=== PATIENT | male | born 1940 ===

== ENCOUNTER 2016-11-11 06:52 | Day surgery (SDC) | payer MEDICARE ==
[2016-11-04 14:23] VITALS: BMI 27.6
[2016-11-11] MEDS ORDERED: Propofol 10 mg/ml Inj (20 ML) ONE (08:39)
[2016-11-13 15:25] VITALS: BP 131/71; PULSE 84; RESP 18; TEMP 98.2; O2SAT 96
== END 2016-11-11 10:27 | disposition home or self-care (01) ==
LOC: ENDO 06:52
PROVIDERS: ATTEND Internal Medicine
DX: K57.30 Diverticulosis of large intestine without perforation or abscess without bleeding (principal); K59.00 Constipation, unspecified; D12.2 Benign neoplasm of ascending colon; D12.5 Benign neoplasm of sigmoid colon; D12.3 Benign neoplasm of transverse colon; K64.8 Other hemorrhoids; I10 Essential (primary) hypertension
CPT/HCPCS: 45380; 45390; 88305; J2704; J7040

== ENCOUNTER 2017-05-02 20:18 | Inpatient (IN) | payer MEDICARE ==
[2017-05-02] MEDS ORDERED: Magnesium Citrate Oral SOL (300 ml) PO ONE (20:59)
--- NOTE | 2017-05-02 22:02 | ED PDOC ---
Arrival/HPI - General Chief Complaint: GI Problem Time Seen by Provider: 05/02/17 20:46 Historian: Patient - History of Present Illness Narrative History of Present Illness (Text): 05/02/17 20:55 Juan Jose Husain is a 76 year old male, whose past medical history includes hypertension, gastritis, and hyperlipidemia, who presents to the Emergency department for evaluation of constipation. Patient states he has not been able to have a normal bowel movement in the past few days. Patient denies any fever, chills, chest pain, shortness of breath, appetite changes, nausea, vomiting, diarrhea, headache, dizziness, or any other complaints. Time/Duration: < week (few days) Symptom Onset: Gradual Symptom Course: Unchanged Activities at Onset: Light Context: Home Past Medical History - Provider Review Nursing Documentation Reviewed: Yes - Infectious Disease Hx of Infectious Diseases: None - Cardiac Hx Hypertension: Yes - Neurological Hx Paralysis: No - Hematological/Oncological Hx Blood Transfusions: No Hx Blood Transfusion Reaction: No - Genitourinary/Gynecological Hx Prostate Cancer: Yes - Psychiatric Hx Emotional Abuse: No Hx Physical Abuse: No Hx Substance Use: No - Anesthesia Hx Anesthesia Reactions: No Hx Malignant Hyperthermia: No - Suicidal Assessment Feels Threatened In Home Enviroment: No Family/Social History - Physician Review Nursing Documentation Reviewed: Yes Family/Social History: Unknown Family HX Smoking Status: Former Smoker Hx Alcohol Use: No Hx Substance Use: No Allergies/Home Meds Allergies/Adverse Reactions: Allergies No Known Allergies Allergy (Verified 11/04/16 14:23) Home Medications: Home Meds Medication Instructions Recorded Confirmed Aspirin [Adult Low Dose Aspirin EC] 81 mg PO DAILY 11/04/16 05/02/17 Metoprolol Tartrate 12.5 mg PO QAM 11/04/16 05/02/17 Simvastatin 40 mg PO QPM 11/04/16 05/02/17 Cholecalciferol [Vitamin D 1000 IU] 50,000 units PO SAT 05/02/17 05/02/17 Ranitidine HCl [Zantac] 150 mg PO DAILY 05/02/17 05/02/17 Review of Systems - Physician Review All systems were reviewed & negative as marked: Yes - Review of Systems Constitutional: Normal. absent: Fevers Eyes: Normal ENT: Normal Respiratory: Normal. absent: SOB, Cough Cardiovascular: Normal. absent: Chest Pain Gastrointestinal: Constipation. absent: Abdominal Pain, Nausea, Vomiting, Appetite Changes Genitourinary Male: Normal. absent: Dysuria, Frequency, Hematuria, Urinary Output Changes Musculoskeletal: Normal. absent: Back Pain, Neck Pain Skin: Normal. absent: Rash Neurological: Normal. absent: Headache, Dizziness Endocrine: Normal Hemo/Lymphatic: Normal Psychiatric: Normal Physical Exam Vital Signs Reviewed: Yes Vital Signs Temp Pulse Resp BP Pulse Ox 05/03/17 03:58 96 H 16 143/76 98 05/02/17 20:19 98.7 F 109 H 18 126/82 98 Temperature: Afebrile Blood Pressure: Normal Pulse: Regular Respiratory Rate: Normal Appearance: Positive for: Well-Appearing, Non-Toxic, Comfortable Pain Distress: None Mental Status: Positive for: Alert and Oriented X 3 - Systems Exam Head: Present: Atraumatic, Normocephalic Pupils: Present: PERRL Extroacular Muscles: Present: EOMI Conjunctiva: Present: Normal Mouth: Present: Moist Mucous Membranes Neck: Present: Normal Range of Motion Respiratory/Chest: Present: Clear to Auscultation, Good Air Exchange. No: Respiratory Distress, Accessory Muscle Use Cardiovascular: Present: Regular Rate and Rhythm, Normal S1, S2. No: Murmurs Abdomen: Present: Normal Bowel Sounds. No: Tenderness, Distention, Peritoneal Signs Back: Present: Normal Inspection. No: CVA Tenderness, Midline Tenderness, Paraspinal Tenderness Upper Extremity: Present: Normal Inspection. No: Cyanosis, Edema Lower Extremity: Present: Normal Inspection. No: Edema Neurological: Present: GCS=15, CN II-XII Intact, Speech Normal Skin: Present: Warm, Dry, Normal Color. No: Rashes Psychiatric: Present: Alert, Oriented x 3, Normal Insight, Normal Concentration Medical Decision Making ED Course and Treatment: 05/02/17 20:55 Impression: 76 year old male complaining of constipation for the past few days. Differential Diagnosis included but are not limited to: constipation vs. colitis Plan: -- Labs, lipase -- Enulose -- Magnesium Citrate -- Reassess and disposition Progress Notes: 05/03/17 03:02 Reviewed radiology, CT Abdomen and Pelvis shows: 1. Findings compatible with stercoral colitis. 2. LEFT renal pelvic calculus with tgha-vz-pezzitlm hydronephrosis. 3. RIGHT renal pelvic calculus with minimal hydronephrosis. 4. Incidental/non-acute findings are described above. 05/03/17 05:[address] Garber, who is aware and agrees with plan. Accepts pt in to her service. Pt will go to [facility] observation for colitis and constipation. Request Dr. Espinoza on consult. - Lab Interpretations Lab Results: 05/02/17 22:33 05/02/17 22:33 Lab Results 05/02/17 22:33: WBC 8.1, RBC 3.95, Hgb 12.0 L, Hct 35.4 L, MCV 89.6, MCH 30.4, MCHC 33.9, RDW 12.9, Plt Count 283, MPV 9.2 05/02/17 22:33: Sodium 139, Potassium 3.7, Chloride 100, Carbon Dioxide 28, Anion Gap 15, BUN 15, Creatinine 0.8, Est GFR ( Amer) > 60, Est GFR (Non- Af Amer) > 60, Random Glucose 87, Calcium 9.4, Total Bilirubin 1.8 H, AST 28, ALT 31, Alkaline Phosphatase 58, Total Protein 7.6, Albumin 4.1, Globulin 3.5, Albumin/Globulin Ratio 1.2, Lipase 133 I have reviewed the lab results: Yes - RAD Interpretation Narrative RAD Interpretations (Text): T Abdomen and Pelvis shows: Limitations: Motion artifact - mild. Lower thorax: Coronary artery calcifications. Small hiatal hernia. Mild mural thickening vs underdistention of distal esophagus. ABDOMEN: Liver: Unremarkable. Gallbladder and bile ducts: No calcified stones. No ductal dilation. Pancreas: Unremarkable. No ductal dilation. Spleen: No splenomegaly. Adrenals: No mass. Kidneys and ureters: Several probable renal cysts. Several renal calculi. Minimal pelvocaliectasis of RIGHT kidney. Fjpy-el-jakzldmd pelvocaliectasis of LEFT kidney. 1.2 x 1.4 x 0.5 cm calculus within RIGHT renal pelvis. 2.3 x 1.9 x 1.3 cm calculus within LEFT renal pelvis. Stomach and bowel: Moderate stool within sigmoid colon and rectum. Fluid/loose stool/air within remaining colon. Few scattered diverticula within colon. No associated inflammatory stranding. Wmgq-zt-gdfgjxtm mural thickening of sigmoid colon and rectum. Mild distention of cecum. Appendix: No findings to suggest acute appendicitis. PELVIS: Bladder: Unremarkable. No stones. Reproductive: Unremarkable as visualized. ABDOMEN and PELVIS: Intraperitoneal space: No significant fluid collection. No free air. Bones/joints: Mild degenerative changes of spine. Mild compression deformity superior endplate T11 vertebral body, chronic. Mild compression deformity superior endplate L1 vertebral body, acute or subacute. Soft tissues: Minimal gynecomastia. Tiny umbilical hernia containing fat. Vasculature: Moderate atherosclerotic disease. 3.0 cm infrarenal abdominal aortic aneurysm. No rupture. Lymph nodes: No pathologically enlarged lymph nodes. IMPRESSION: 1. Findings compatible with stercoral colitis. 2. LEFT renal pelvic calculus with mviy-yb-tqxfmcqt hydronephrosis. 3. RIGHT renal pelvic calculus with minimal hydronephrosis. 4. Incidental/non-acute findings are described above. Radiology Orders: 05/03/17 01:33 ABD & PELVIS W/O PO OR IV CONT [CT] Stat Hat Lacer: Radiologist - Medication Orders Current Medication Orders: Aspirin (Ecotrin) 81 mg PO DAILY [facility] Last Admin: 05/03/17 10:39 Dose: 81 mg Atorvastatin Calcium (Lipitor) 20 mg PO DIN FERNY Cholecalciferol (Vitamin D) 1,000 iu PO SAT FERNY Famotidine (Pepcid) 20 mg PO HS FERNY Ceftriaxone Sodium (Rocephin 1 Gram Ivpb) 1 gm in 100 mls @ 100 mls/hr IVPB DAILY [facility] PRN Reason: Protocol Last Admin: 05/03/17 10:39 Dose: 100 mls/hr Metronidazole (Flagyl) 500 mg in 100 mls @ 100 mls/hr IVPB Q8 FERNY PRN Reason: Protocol Metoprolol Tartrate (Lopressor) [facility] Last Admin: 05/03/17 10:39 Dose: 12.5 mg Discontinued Medications Ciprofloxacin (Cipro 400mg/200ml Dsw) 400 mg in 200 mls @ 133.333 mls/hr IV STAT STA PRN Reason: Protocol Stop: 05/03/17 04:31 Last Admin: 05/03/17 06:48 Dose: 133.333 mls/hr Metronidazole (Flagyl) 500 mg in 100 mls @ 100 mls/hr IVPB STAT STA PRN Reason: Protocol Stop: 05/03/17 04:02 Last Admin: 05/03/17 03:45 Dose: 100 mls/hr Sodium Chloride (Sodium Chloride 0.9%) 1,000 mls @ 100 mls/hr IV .Q10H STA Stop: 05/03/17 13:10 Last Admin: 05/03/17 03:46 Dose: 100 mls/hr Metronidazole (Flagyl) 1 gm in 200 mls @ 100 mls/hr IVPB Q8 FERNY PRN Reason: Protocol Last Admin: 05/03/17 14:13 Dose: 100 mls/hr Lactulose (Enulose) 20 gm PO ONCE STA Stop: 05/02/17 21:00 Last Admin: 05/02/17 22:37 Dose: 20 gm Magnesium Citrate (Citrate Of Mag) 300 ml PO ONCE ONE Stop: 05/02/17 21:00 Last Admin: 05/02/17 22:37 Dose: 300 ml - Scribe Statement The provider has reviewed the documentation as recorded by the Yaa Malhotra Provider Scribe Attestation: All medical record entries made by the Sarbjitibjulee were at my direction and personally dictated by me. I have reviewed the chart and agree that the record accurately reflects my personal performance of the history, physical exam, medical decision making, and the department course for this patient. I have also personally directed, reviewed, and agree with the discharge instructions and disposition. Disposition/Present on Arrival - Present on Arrival Any Indicators Present on Arrival: No History of DVT/PE: No History of Uncontrolled Diabetes: No Urinary Catheter: No History of Decub. Ulcer: No History Surgical Site Infection Following: None - Disposition Have Diagnosis and Disposition been Completed?: Yes Diagnosis: Colitis, Constipation Disposition: HOSPITALIZED Disposition Time: 03:11 Patient Plan: Observation Patient Problems: Current Active Problems Problem Status Onset Colitis Acute Constipation Acute Condition: STABLE
[2017-05-02 22:44] LABS: HEMATOCRIT 35.4 % (42.0-52.0); MEAN CELL VOLUME 89.6 fl (80.0-105.0); MEAN CORPUSCULAR HEMOGLOBIN 30.4 pg (25.0-35.0); MEAN CORPUSCULAR HGB CONC 33.9 g/dl (31.0-37.0); MEAN PLATELET VOLUME 9.2 fl (7.0-11.0); RED CELL DISTRIBUTION WIDTH 12.9 % (11.5-14.5); WHITE BLOOD COUNT 8.1 10^3/ul (4.5-11.0)
[2017-05-02 22:58] LABS: ALB/GLOB RATIO 1.2 (1.1-1.8); ALKALINE PHOSPHATASE 58 U/L (38-126); ALT/SGPT 31 U/L (7-56); AST/SGOT 28 U/L (17-59); BILIRUBIN,TOTAL 1.8 mg/dL (0.2-1.3); BLOOD UREA NITROGEN 15 mg/dL (7-21); CALCIUM 9.4 mg/dL (8.4-10.5); CARBON DIOXIDE 28 mmol/L (21-33); CHLORIDE 100 mmol/L (95-110); GFR AFRICAN-AMERICAN > 60; GLUCOSE,RANDOM 87 mg/dL (70-110); LIPASE 133 U/L (23-300); POTASSIUM 3.7 mmol/L (3.6-5.0); SODIUM 139 mmol/L (132-148); TOTAL PROTEIN 7.6 g/dL (5.8-8.3)
--- NOTE | 2017-05-03 02:45 | CT ---
EXAM: CT Abdomen and Pelvis Without Intravenous Contrast CLINICAL HISTORY: 76 years old, male; Pain; Abdominal pain; Additional info: Constipated TECHNIQUE: Axial computed tomography images of the abdomen and pelvis without intravenous contrast. All CT scans at this facility use one or more dose reduction techniques, viz.: automated exposure control; ma/kV adjustment per patient size (including targeted exams where dose is matched to indication; i.e. head); or iterative reconstruction technique. Coronal and sagittal reformatted images were created and reviewed. COMPARISON: No relevant prior studies available. FINDINGS: Limitations: Motion artifact - mild. Lower thorax: Coronary artery calcifications. Small hiatal hernia. Mild mural thickening vs underdistention of distal esophagus. ABDOMEN: Liver: Unremarkable. Gallbladder and bile ducts: No calcified stones. No ductal dilation. Pancreas: Unremarkable. No ductal dilation. Spleen: No splenomegaly. Adrenals: No mass. Kidneys and ureters: Several probable renal cysts. Several renal calculi. Minimal pelvocaliectasis of RIGHT kidney. Qlja-ua-sqgqtcvh pelvocaliectasis of LEFT kidney. 1.2 x 1.4 x 0.5 cm calculus within RIGHT renal pelvis. 2.3 x 1.9 x 1.3 cm calculus within LEFT renal pelvis. Stomach and bowel: Moderate stool within sigmoid colon and rectum. Fluid/loose stool/air within remaining colon. Few scattered diverticula within colon. No associated inflammatory stranding. Jvsj-dn-jchrsguq mural thickening of sigmoid colon and rectum. Mild distention of cecum. Appendix: No findings to suggest acute appendicitis. PELVIS: Bladder: Unremarkable. No stones. Reproductive: Unremarkable as visualized. ABDOMEN and PELVIS: Intraperitoneal space: No significant fluid collection. No free air. Bones/joints: Mild degenerative changes of spine. Mild compression deformity superior endplate T11 vertebral body, chronic. Mild compression deformity superior endplate L1 vertebral body, acute or subacute. Soft tissues: Minimal gynecomastia. Tiny umbilical hernia containing fat. Vasculature: Moderate atherosclerotic disease. 3.0 cm infrarenal abdominal aortic aneurysm. No rupture. Lymph nodes: No pathologically enlarged lymph nodes. IMPRESSION: 1. Findings compatible with stercoral colitis. 2. LEFT renal pelvic calculus with rvnh-sw-qrfnkicf hydronephrosis. 3. RIGHT renal pelvic calculus with minimal hydronephrosis. 4. Incidental/non-acute findings are described above.
[2017-05-03] MEDS ORDERED: Ciprofloxacin 400mg/200ml D5W 400 MG/200 ML BAG IV STA (03:02)
[2017-05-03] MEDS ORDERED: metroNIDAZOLE IV 500 mg/100 ml 500 MG/100 ML BAG IVPB STA (03:03)
[2017-05-03] MEDS ORDERED: Sodium Chloride 0.9% 1,000 ML IV STA (03:11)
[2017-05-03 05:16] VITALS: BMI 25.7
[2017-05-03] MEDS ORDERED: METOPROLOL TARTRATE 12.5 MG PO SCH (10:00)
[2017-05-03] MEDS: cefTRIAXone 1 gm 1 GM/100 ML BAG IVPB SCH (10:39)
[2017-05-03] MEDS ORDERED: METRONIDAZOLE IVPB SCH (14:00)
[2017-05-03] MEDS ORDERED: metroNIDAZOLE IV 500 mg/100 ml 100 ML IVPB SCH (14:00)
[2017-05-03] MEDS ORDERED: Non Formulary Medication (Simvastatin [Simvastatin] 40 MG) PO SCH (18:00)
[2017-05-03] MEDS: metroNIDAZOLE IV 500 mg/100 ml 500 MG/100 ML BAG IVPB SCH (22:23)
--- NOTE | 2017-05-04 04:08 | HP ---
CHIEF COMPLAINT: Bad constipation, abdominal pain. HISTORY OF PRESENT ILLNESS: Mr. Juan Jose Husain is 76 years old male with past medical history of hypertension and gastritis, hypercholesterolemia, came to the emergency department for evaluation of constipation. The patient said he has not been able to have a normal bowel movement. In the past few days, actually at home, he was taking MiraLax and Colace, but it was not working. The patient denies fevers, chills, chest pain, shortness of breath. No hematochezia. No nausea or vomiting, but complaining about abdominal heaviness. PAST MEDICAL HISTORY: Hypertension and history of prostate cancer. FAMILY HISTORY: Father and mother noncontributory. HABITS: Former smoker, nonsmoking. No drugs. No ethanol. ALLERGIES: THE PATIENT IS NOT ALLERGIC WITH ANY MEDICATIONS. HOME MEDICATIONS: Aspirin, metoprolol, simvastatin, vitamin D, Zantac. REVIEW OF SYSTEMS: The patient is seen and examined on the bedside. Looking little bit comfortable. No fever. No shortness of breath. No coughing. No chest pain. No nausea or vomiting. No appetite change. No dysuria. No frequency or hematuria. Urinary output is okay. No back pain. No neck pain. No rashes. No headache. No dizziness. PHYSICAL EXAMINATION: VITAL SIGNS: Temperature 98.7, pulse 99, blood pressure 133/88, respiratory rate 18. HEENT: Head is normocephalic and atraumatic. Eyes; PERRLA. Extraocular muscles intact. Conjunctivae clear. Nose is patent. Mucous membranes moist. NECK: Supple. No carotid bruit, JVD, or thyromegaly. CHEST: Bilaterally symmetrical. HEART: S1 and S2 positive. LUNGS: Clear to auscultation. ABDOMEN: Soft. Bowel sounds positive. No organomegaly. EXTREMITIES: No edema. No cyanosis. NEUROLOGIC: The patient is awake, alert, moving all 4 extremities. No focal deficit. LABORATORY DATA: White blood cells 8.1, hemoglobin 12.0, hematocrit 35.4, platelets of 283. Sodium 139, potassium 3.7, BUN 15, creatinine 0.8, glucose 87, total bilirubin 1.8. ASSESSMENT AND PLAN: Mr. Rodrigue Ingram is 76 years old male with anemia, abnormal liver function test, pain with bad constipation. Did CAT scan of abdomen and pelvis. Has colitis, left pelvic calculus with vuiz-gn-nhlrvngp hydronephrosis, right renal pelvic calculus with minimal hydronephrosis, moderate atherosclerotic disease, 3 cm infrarenal abdominal aortic aneurysm, mild compression deformities, end plate L1 vertebral body, acute or subacute umbilical hernia, mild compression deformities endplate of T11 vertebral body. The patient has history of hypertension, gastritis, hypercholesterolemia, history of prostate cancer. The patient is given ciprofloxacin, aspirin, and lactulose. With lactulose, the patient has bowel movement. Started on metronidazole and atorvastatin. GI and DVT prophylaxis. Repeat labs. We will follow. Leona Garber MD MTDD
[2017-05-04] MEDS: metroNIDAZOLE IV 500 mg/100 ml 500 MG/100 ML BAG IVPB SCH ×3 (05:49→22:34)
[2017-05-04 06:58] LABS: HEMATOCRIT 36.1 % (42.0-52.0); MEAN CELL VOLUME 89.6 fl (80.0-105.0); MEAN CORPUSCULAR HGB CONC 33.5 g/dl (31.0-37.0); MEAN PLATELET VOLUME 9.7 fl (7.0-11.0); RED CELL DISTRIBUTION WIDTH 13.2 % (11.5-14.5); WHITE BLOOD COUNT 6.7 10^3/ul (4.5-11.0)
[2017-05-04 07:32] LABS: BLOOD UREA NITROGEN 8 mg/dL (7-21); CALCIUM 9.2 mg/dL (8.4-10.5); CARBON DIOXIDE 29 mmol/L (21-33); CHLORIDE 103 mmol/L (98-107); CHOLESTEROL 128 mg/dL (130-200); GFR AFRICAN-AMERICAN > 60; GLUCOSE,RANDOM 79 mg/dL (70-110); POTASSIUM 3.7 mmol/L (3.6-5.0); SODIUM 142 mmol/L (132-148)
[2017-05-04 07:49] LABS: IRON 50 ug/dL (45-180)
[2017-05-04] MEDS: cefTRIAXone 1 gm 1 GM/100 ML BAG IVPB SCH (10:43)
[2017-05-04 13:33] LABS: FOLATE 5.7 ng/mL
--- NOTE | 2017-05-04 22:13 | PN ---
DATE: SUBJECTIVE: The patient is 76 years old male. The patient seen and examined on the bedside, looking comfortable. Abdominal pain is better. He had couple of bowel movements. No nausea or vomiting. No headache. No chest pain. No palpitations. PHYSICAL EXAMINATION VITAL SIGNS: Temperature 98.2, pulse 70, blood pressure 109/65, respiratory rate 20. HEENT: Head is normocephalic and atraumatic. Eyes: PERRLA. Extraocular muscles intact. Conjunctivae clear. Nose patent. Mucous membrane moist. NECK: Supple. No carotid bruits, No JVD or thyromegaly. CHEST: Bilaterally symmetrical. HEART: S1 and S2 positive. LUNGS: Clear to auscultation. ABDOMEN: Soft. Bowel sounds positive. No organomegaly. EXTREMITIES: No edema. No cyanosis. NEUROLOGICALLY: The patient is awake, alert. Moving all four extremities. No focal deficits. MEDICATIONS: Ecotrin, Flagyl, Lipitor, Lopressor, Pepcid, vitamin D. LABORATORY DATA: White blood cell is 6.7, hemoglobin 12.1, hematocrit 36.1, platelet 323, sodium 142, potassium 3.7, BUN 8, creatinine 0.7, iron saturation 16%, total protein bilirubin 1.8, cholesterol 128 and HDL is 63. ASSESSMENT AND PLAN: Mr. Rodrigue Ingram is a 76 years old man with anemia, iron deficiency, abnormal liver function test, have constipation, history of hypertension, history of prostate cancer, has colitis, left renal calculus with xhza-gl-lpcyryvw hydronephrosis, right renal pelvis calculus with minimal hydronephrosis. He was admitted for renal abdominal aortic aneurysm, compression deformity of the vertebra, umbilical hernia, history of gastritis and hypercholesterolemia. With lactulose constipation has resolved now we will discontinue the lactulose. The patient is on metronidazole and ciprofloxacin. Urology and GI consults called, waiting for GI and urology input. Repeat labs, out of bed, and physical therapy. We will followup. Leona Garber MD [facility]
[2017-05-05] MEDS: metroNIDAZOLE IV 500 mg/100 ml 500 MG/100 ML BAG IVPB SCH ×3 (05:43→21:51)
--- NOTE | 2017-05-05 07:57 | CP.PCM.CON ---
<Ronal Syed - Last Filed: 05/05/17 11:15> History of Present Illness - History of Present Illness History of Present Illness: GI Consult Note for Dr. Brothers 76 y/o M with PMH of HTN, HLD, and Prostate cancer presenting to the hospital on 05/03/17 for abdominal pain. Pt is a poor historian, much of medical history obtained from prior medical records. Patient stated that he did not have a bowel movement recently, for at least 3 days. Patient states he normally has a bowel movement every few days with the help of milk of magnesia. Pt states that recently, milk of magnesia has not been working for him. He has not tried anything else for his constipation. Abdomen/pelvis CT at time of admission did show stercoral colitis and left and right renal caliculi with hydronephrosis. Pt had a colonoscopy on 11/11/16 which showed multiple polyps within the ascending, transverse, and sigmoid colon, all found to be tubular adenomas. Last night, patient had a larger bowel movement and since that time feels much better. He no longer complains of abdominal pain. PMH: HTN, HLD, Prostate cancer Endo Hx: Colonoscopy as above Social Hx: Former smoker, 1 ppd for many years. No illicit drug use or alcohol use Allergies: None Medications: Reviewed, as per MAR Review of Systems - Review of Systems Review of Systems: 12 point ROS as per HPI, otherwise negative Past Patient History - Infectious Disease Hx of Infectious Diseases: None - Past Social History Smoking Status: Former Smoker - CARDIAC Hx Hypertension: Yes - NEUROLOGICAL Hx Paralysis: No - HEMATOLOGICAL/ONCOLOGICAL Hx Blood Transfusions: No Hx Blood Transfusion Reaction: No - MUSCULOSKELETAL/RHEUMATOLOGICAL Hx Falls: No - GENITOURINARY/GYNECOLOGICAL Hx Prostate Cancer: Yes - PSYCHIATRIC Hx Emotional Abuse: No Hx Physical Abuse: No Hx Substance Use: No - SURGICAL HISTORY Hx Surgeries: Yes - ANESTHESIA Hx Anesthesia Reactions: No Hx Malignant Hyperthermia: No Meds Allergies/Adverse Reactions: Allergies Allergy/AdvReac Type Severity Reaction Status Date / Time No Known Allergies Allergy Verified 11/04/16 14:23 - Medications Medications: Current Medications Aspirin (Ecotrin) 81 mg PO DAILY [facility] Last Admin: 05/04/17 10:42 Dose: 81 mg Atorvastatin Calcium (Lipitor) 20 mg PO DIN [facility] Last Admin: 05/04/17 17:43 Dose: 20 mg Cholecalciferol (Vitamin D) 1,000 iu PO SAT [facility] Famotidine (Pepcid) 20 mg PO HS [facility] Last Admin: 05/04/17 22:33 Dose: 20 mg Ceftriaxone Sodium (Rocephin 1 Gram Ivpb) 1 gm in 100 mls @ 100 mls/hr IVPB DAILY [facility] PRN Reason: Protocol Last Admin: 05/04/17 10:43 Dose: 100 mls/hr Metronidazole (Flagyl) 500 mg in 100 mls @ 100 mls/hr IVPB Q8 [facility] PRN Reason: Protocol Last Admin: 05/05/17 05:43 Dose: 100 mls/hr Metoprolol Tartrate (Lopressor) 12.5 mg PO QAM [facility] Last Admin: 05/04/17 10:42 Dose: 12.5 mg Physical Exam - Constitutional Appears: Well - Head Exam Head Exam: ATRAUMATIC, NORMAL INSPECTION, NORMOCEPHALIC - ENT Exam ENT Exam: Mucous Membranes Moist, Normal Exam - Respiratory Exam Respiratory Exam: Clear to Auscultation Bilateral, NORMAL BREATHING PATTERN. absent: Rales, Rhonchi, Wheezes - Cardiovascular Exam Cardiovascular Exam: RRR, +S1, +S2 - GI/Abdominal Exam GI & Abdominal Exam: Normal Bowel Sounds, Soft. absent: Tenderness - Extremities Exam Extremities exam: Negative for: calf tenderness, pedal edema - Back Exam Back exam: CVA tenderness (R). absent: CVA tenderness (L) - Neurological Exam Neurological exam: Alert, CN II-XII Intact, Oriented x3 - Psychiatric Exam Psychiatric exam: Normal Affect, Normal Mood - Skin Skin Exam: Intact, Normal Color, Warm Results - Vital Signs Recent Vital Signs: Last Vital Signs Temp 98.2 F 05/04/17 17:07 Pulse 70 05/04/17 17:07 Resp 20 05/04/17 17:07 BP 109/65 05/04/17 17:07 Pulse Ox 98 05/04/17 17:07 - Labs Result Diagrams: 05/04/17 06:00 05/04/17 06:00 Labs: Laboratory Results - last 24 hr 05/04/17 05/04/17 05/04/17 06:00 06:00 06:00 Iron 50 TIBC 318 % Saturation 16 L Vitamin B12 311 Folate 5.7 TSH 3rd Generation 1.16 Assessment & Plan - Assessment and Plan (Free Text) Plan: 76 y/o M with PMH of HTN, HLD, and Prostate cancer presents with abdominal pain secondary to constipation. Pt currently asymptomatic after large bowel movement last night. Pt will be placed on bowel regimen to alleviate constipation. In addition, patient will undergo cystoscopy by urology. Will sign off at this time , please reconsult as needed. Plan: Miralax daily, titrate to 1-2 bowel movements Colace daily Cystoscopy per Urology Continue medical management as per primary care team Yahaira PGY-2 <Mack Brothers Y - Last Filed: 05/05/17 11:45> Meds - Medications Medications: Current Medications Aspirin (Ecotrin) 81 mg PO DAILY [facility] Last Admin: 05/05/17 10:29 Dose: 81 mg Atorvastatin Calcium (Lipitor) 20 mg PO DIN [facility] Last Admin: 05/04/17 17:43 Dose: 20 mg Cholecalciferol (Vitamin D) 1,000 iu PO SAT [facility] Docusate Sodium (Colace) 100 mg PO DAILY [facility] Last Admin: 05/05/17 10:19 Dose: Not Given Famotidine (Pepcid) 20 mg PO HS [facility] Last Admin: 05/04/17 22:33 Dose: 20 mg Ceftriaxone Sodium (Rocephin 1 Gram Ivpb) 1 gm in 100 mls @ 100 mls/hr IVPB DAILY [facility] PRN Reason: Protocol Last Admin: 05/05/17 10:23 Dose: 100 mls/hr Metronidazole (Flagyl) 500 mg in 100 mls @ 100 mls/hr IVPB Q8 [facility] PRN Reason: Protocol Last Admin: 05/05/17 05:43 Dose: 100 mls/hr Metoprolol Tartrate (Lopressor) 12.5 mg PO QAM [facility] Last Admin: 05/05/17 10:23 Dose: 12.5 mg Polyethylene Glycol (Miralax) 17 gm PO DAILY [facility] Last Admin: 05/05/17 10:24 Dose: Not Given Results - Vital Signs Recent Vital Signs: Last Vital Signs Temp 98.2 F 05/05/17 08:53 Pulse 93 H 05/05/17 10:23 Resp 20 05/05/17 08:53 BP 156/93 H 05/05/17 10:23 Pulse Ox 97 05/05/17 08:53 - Labs Result Diagrams: 05/04/17 06:00 05/04/17 06:00 Attending/Attestation - Attestation I have personally seen and examined this patient.: Yes I have fully participated in the care of the patient.: Yes I have reviewed all pertinent clinical information: Yes Notes (Text): 05/05/17 11:38 I have seen and examined patient with GI fellow and lpn or medical assistant. Agree with above documentation with the following additions. In brief, this is a 76 year old male with history of HTN, prostate cancer, chronic constipation, who presents with complaint of abdominal pain. He describes a 7/10 intensity pain mainly located in RUQ, radiating to R flank that has been present for the past 2 days. He denies associated nausea, vomiting, fever/chills, weight loss, or rectal bleeding. He admits to chronic constipation and typically has a bowel movement every 3-4 days, recently with passage of hard stool and straining during defecation. He had a large bowel movement last night and since then his abdominal pain has significant improved, though the flank pain persists. He had a colonoscopy in October 2016 which showed diverticulosis, multiple adenomatous polyps. Additional physical examination: Abdomen: no palpable hepato/splenomegaly HTN Prostate cancer Abdominal pain, chronic constipation Nephrolithiasis, hydronephrosis CT imaging reviewed by me showing changes suggestive of stercoral colitis - Diet as tolerated - Had a long discussion with patient regarding importance of increased PO water and fiber intake - Maintain aggressive bowel regimen to prevent ongoing constipation - Continue with antibiotic therapy as per medical team - Patient to undergo possible cystoscopy today, follow up urology recommendations - Patient will need repeat colonoscopy in October [address] Quispe for surveillance. No current planned GI intervention, will sign off case, please reconsult as necessary. Case discussed with Dr. Garber.
--- NOTE | 2017-05-05 08:23 | PCM.URO ---
Urology Progress Note - Subjective Abdominal Pain: Yes - Objective Lab Results Last 24 Hours: Laboratory Results - last 24 hr 05/04/17 05/04/17 06:00 06:00 Iron 50 TIBC 318 % Saturation 16 L Vitamin B12 311 Folate 5.7 Intake & Output: Intake & Output 05/04/17 05/05/17 05/05/17 18:59 06:59 18:59 Intake Total 1540 540 Output Total 14 0 Balance 1526 540 Intake: Oral 1540 540 Output: Urine 6 Urine, Voided 6 Stool 8 0 Other: # Voids Urine, Voided 4 2 # Bowel Movements 1 3 Vital Signs: Vital Signs - 24 hr 05/04/17 05/04/17 10:42 17:07 Temperature 98.2 F Pulse Rate 70 Respiratory 20 Rate Blood Pressure 137/77 109/65 O2 Sat by Pulse 98 Oximetry - Plan Additional Information: gu plans : further plans to follow , he needs cystoscoy we can perform as in pt or out pt
[2017-05-05] MEDS: cefTRIAXone 1 gm 1 GM/100 ML BAG IVPB SCH (10:23)
[2017-05-05] MEDS: POLYETHYLENE GLYCOL 3350 17 GM/Dose PACKET PO SCH (10:24)
--- NOTE | 2017-05-05 15:33 | RAD ---
HISTORY: pre-cystoscopy COMPARISON: No prior. FINDINGS: LUNGS: The lungs are well inflated. There are chronic changes in both lungs. PLEURA: No significant pleural effusion identified, no pneumothorax apparent. CARDIOVASCULAR: Normal. OSSEOUS STRUCTURES: No significant abnormalities. VISUALIZED UPPER ABDOMEN: Normal. OTHER FINDINGS: None. IMPRESSION: No acute findings.
[2017-05-05] MEDS ORDERED: Lactated Ringer's 1,000 ML IV SCH (16:10)
[2017-05-05] MEDS ORDERED: Morphine 2 mg/ml ISec IVP PRN (16:10)
[2017-05-05] MEDS ORDERED: Propofol 10 mg/ml Inj (20 ML) ONE (16:35)
[2017-05-05] MEDS ORDERED: Midazolam 2 MG/2 ML VIAL ONE (16:36)
[2017-05-05] MEDS ORDERED: Iohexol 240 (50 ml) ONE (18:01)
--- NOTE | 2017-05-05 20:48 | CARD ---
APPROVED REPORT EKG Measurement Heart [id number] <Conclusion> Normal sinus rhythm Right bundle branch block Abnormal ECG
[2017-05-06 09:14] VITALS: BP 140/70; PULSE 92; RESP 20; TEMP 98.8; O2SAT 97
[2017-05-06] MEDS: POLYETHYLENE GLYCOL 3350 17 GM/Dose PACKET PO SCH (09:45)
[2017-05-06] MEDS: cefTRIAXone 1 gm 1 GM/100 ML BAG IVPB SCH (10:00)
--- NOTE | 2017-05-06 12:45 | RAD ---
PROCEDURE: Intraoperative Fluoroscopy. HISTORY: STENT INSERTION / RETROGRADES BILATERAL FINDINGS: Fluoroscopic assistance was provided. 113.8 seconds of fluoroscopy time utilized during this procedure. Radiation dose = 17.59 mGy.
--- NOTE | 2017-05-08 08:17 | DS ---
CHIEF COMPLAINT: Constipation and abdominal pain. HISTORY OF PRESENT ILLNESS: Mr. Juan Jose Husain is 76 years old male with a past medical history of hypertension, gastritis, and hypercholesterolemia, came to the emergency room for evaluation of constipation and the patient said that he has not been able to have a normal bowel movement in past few days. Actually at home, he was taking MiraLax, Colace, but was not working, then the patient came in the hospital, CAT scan of abdomen and pelvis done. Seen by urologist and embosser operator and Dr. Mack Brothers. Went for cystoscopy on for hydronephrosis and nephrolithiasis, cleared by GI and urology, sent home with follow up, primary care physician, urologist and embosser operator. PAST MEDICAL HISTORY: Hypertension and history of prostate cancer. FAMILY HISTORY: Father and mother noncontributory. HABITS: Former smoker. No drugs, and no ethanol. ALLERGIES: THE PATIENT IS NOT ALLERGIC WITH ANY MEDICATION. HOME MEDICATIONS: Aspirin, metoprolol, simvastatin, vitamin D, and Zantac. REVIEW OF SYSTEMS: The patient was seen and examined on the bedside, looking comfortable. No nausea, vomiting, or diarrhea. No hematuria or hematochezia. No swelling of the legs. No chest pain. No palpitations. No headache or dizziness. PHYSICAL EXAMINATION: VITAL SIGNS: Temperature 98.8, pulse 92, blood pressure 140/70 and respiratory rate 20. HEENT: Head is normocephalic and atraumatic. Eyes, PERRLA. Extraocular muscle intact. Conjunctivae clear. Nose is patent. Mucous membrane moist. NECK: Supple. No carotid bruits. No JVD or thyromegaly. CHEST: Bilaterally symmetrical. HEART: S1 and S2 positive. LUNGS: Clear to auscultation. ABDOMEN: Soft. Bowel sounds positive. No organomegaly. EXTREMITIES: No edema and no cyanosis. NEUROLOGIC: The patient is awake and alert. Moving all four extremities. No focal deficits. LABORATORY DATA: White blood cell is 6.7, hemoglobin 12.1, hematocrit 36.1 and platelets 323. Sodium 142, potassium 3.7, BUN 8, creatinine 0.7, glucose 79. Hemoglobin A1c is 6.1. Saturation of iron 16, bilirubin 1.8, and cholesterol 128. ASSESSMENT AND PLAN: Mr. Juan Jose Husain is a 76 years old male with anemia, already seen by embosser operator, iron deficiency, abnormal liver function test and bilirubin is 1.8, came with bad constipation, history of hypertension, hypercholesterolemia, prostate cancer, came with abdominal pain secondary to constipation. The patient had couple of large bowel movements after pain is gone. Hydronephrosis bilaterally, nephrolithiasis, went for cystoscopy by Dr. Sky. GI already signed off from the case. 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 Diet given as tolerated. The patient was agitated for lifestyle modification and increased p.o. water and fiber intake, aggressive bowel regimen to prevent ongoing constipation. Discussion done with GI, according to that the patient is on antibiotic because of Stercoral colitis. The patient need to repeat coloscopy in October [address] Quispe, for surveillance. No current planning, GI intervention. Discussion done with GI with Dr. Mack Brothers after cystoscopy done on 05/06/[address] Sky shows colitis, constipation, bilateral hydronephrosis, and stones. Discharge home by nurse practitioner. Prescription of medications given. Follow up with embosser operator and primary care physician. Lifestyle modification. Education done. We will follow. Leona Garber MD
== END 2017-05-06 11:04 | disposition home or self-care (01) | DRG 392 ==
LOC: ED 20:18 → ERH 05-03 03:09 → 3RSO 05-03 04:09 → OBSVTOIN 05-04 11:44
PROVIDERS: ADMIT Internal Medicine; ATTEND Internal Medicine
PROC: BT141ZZ Fluoroscopy of Kidneys, Ureters and Bladder using Low Osmolar Contrast (ICD-10-PCS; 2017-05-05)
PROC: 0T788DZ Dilation of Bilateral Ureters with Intraluminal Device, Via Natural or Artificial Opening Endoscopic (ICD-10-PCS; principal; 2017-05-05 17:00)
DX: K59.09 Other constipation (principal); N13.2 Hydronephrosis with renal and ureteral calculous obstruction; K52.9 Noninfective gastroenteritis and colitis, unspecified; I10 Essential (primary) hypertension; E78.00 Pure hypercholesterolemia, unspecified; K29.70 Gastritis, unspecified, without bleeding; I71.4 Abdominal aortic aneurysm, without rupture; K42.9 Umbilical hernia without obstruction or gangrene; D50.9 Iron deficiency anemia, unspecified; R79.89 Other specified abnormal findings of blood chemistry; K57.30 Diverticulosis of large intestine without perforation or abscess without bleeding; Z85.46 Personal history of malignant neoplasm of prostate; Z87.891 Personal history of nicotine dependence

== ENCOUNTER 2018-08-28 08:46 | Outpatient (CLI) | payer MEDICARE | END 2018-08-28 08:47 | disposition home or self-care (01) | LOC: RAD 08:46 ==